=== PATIENT | female | born 1985 | race American Indian/Alaskan Native ===

== ENCOUNTER 2017-04-27 12:38 | Emergency (ER) | payer MEDICAID ==
[2017-04-27 14:03] VITALS: BMI 35.9
[2017-04-27 14:06] VITALS: TEMP 98.4; O2SAT 99
[2017-04-27] MEDS ORDERED: Sodium Chloride 0.9% 1,000 ML IV STA (14:13)
--- NOTE | 2017-04-27 14:33 | ED PDOC ---
Arrival/HPI - General Historian: Patient - History of Present Illness Time/Duration: > week Symptom Onset: Gradual Symptom Course: Unchanged Severity Level: 6 - General Chief Complaint: Abdominal Pain Time Seen by Provider: 04/27/17 14:13 - History of Present Illness Narrative History of Present Illness (Text): 31 F who is 19 weeks presents to ED with complaint of abdominal pain. Patient states that she has had this pain now for 2 weeks. It was a sudden onset and it has not changed. She initially thought she had an UTI because she had a similar pain when it occurred. Patient rates pain 8/10 in severity at its worst. Currently, it is 3/10. She describes the pain as constant and aching with varying intensity located in lower abdomen bilaterally. Standing up for long period of times exacerbates the pain while nothing alleviates it. Admits to urinary frequency but denies dysuria, urgency and incontinence. (Tashi Doyle) Past Medical History - Provider Review Nursing Documentation Reviewed: Yes - Travel History Have you recently traveled outside [place] w/in the past 3 mons?: No - Infectious Disease Hx of Infectious Diseases: None - Psychiatric Hx Substance Use: No - Surgical History Hx Tonsillectomy: Yes - Anesthesia Hx Anesthesia: Yes Hx Anesthesia Reactions: No Hx Malignant Hyperthermia: No - Suicidal Assessment Feels Threatened In Home Enviroment: No Family/Social History - Physician Review Nursing Documentation Reviewed: Yes Family/Social History: No Known Family HX Smoking Status: Light Smoker < 10 Cigarettes Daily Hx Alcohol Use: Yes Hx Substance Use: No Allergies/Home Meds Allergies/Adverse Reactions: Allergies No Known Allergies Allergy (Verified 11/02/16 14:00) Home Medications: Home Meds Medication Instructions Recorded Confirmed Pnv No.95/Ferrous Fum/Folic AC 1 tab PO DAILY 04/27/17 04/27/17 [ Tablet] Review of Systems - Review of Systems Constitutional: absent: Fatigue, Weight Change, Fevers, Night Sweats Eyes: absent: Vision Changes, Photophobia, Eye Pain ENT: absent: Hearing Changes, Tinnitus, TMJ Pain Respiratory: absent: SOB, Cough, Sputum, Wheezing Cardiovascular: absent: Chest Pain, Palpitations, Edema Gastrointestinal: Abdominal Pain, Constipation. absent: Diarrhea, Nausea, Vomiting Genitourinary Female: Dysuria, Frequency Musculoskeletal: Myalgias Skin: absent: Rash, Skin Lesions, Laceration Neurological: absent: Headache, Dizziness, Focal Weakness Endocrine: absent: Diaphoresis, Polyuria, Polydipsia Hemo/Lymphatic: absent: Adenopathy, Easy Bleeding, Easy Bruising Psychiatric: absent: Anxiety, Depression, Suicidal Ideation Physical Exam Vital Signs Reviewed: Yes Temperature: Afebrile Blood Pressure: Normal Pulse: Regular Respiratory Rate: Normal Appearance: Positive for: Well-Appearing, Non-Toxic, Comfortable Pain Distress: None Mental Status: Positive for: Alert and Oriented X 3 - Systems Exam Head: Present: Atraumatic, Normocephalic Pupils: Present: PERRL Extroacular Muscles: Present: EOMI Conjunctiva: Present: Normal Ears: Present: Normal Mouth: Present: Moist Mucous Membranes Pharnyx: Present: Normal Nose (External): Present: Atraumatic Nose (Internal): Present: Normal Inspection Neck: Present: Normal Range of Motion, Trachea Midline. No: MIDLINE TENDERNESS , Paraspinal Tenderness Respiratory/Chest: Present: Clear to Auscultation, Good Air Exchange. No: Respiratory Distress, Accessory Muscle Use, Wheezes, Rales, Rhonchi Cardiovascular: Present: Regular Rate and Rhythm, Normal S1, S2 Abdomen: Present: Tenderness (lower abdomen/suprapubic), Normal Bowel Sounds. No: Distention, Peritoneal Signs, Rebound, Guarding Back: No: CVA Tenderness Upper Extremity: Present: Normal ROM, NORMAL PULSES, Neurovascularly Intact, Capillary Refill < 2s Lower Extremity: Present: NORMAL PULSES, Normal ROM, Neurovascularly Intact, Capillary Refill < 2 s Neurological: Present: GCS=15, CN II-XII Intact, Speech Normal, Motor Func Grossly Intact, Normal Sensory Function, Normal Cerebellar Funct Skin: Present: Warm, Dry, Normal Color Lymphatic: No: Cervical Adenopathy, Axillary Adenopathy, Inguinal Adenopathy Psychiatric: Present: Alert, Oriented x 3, Normal Insight, Normal Concentration Vital Signs Temp Pulse Resp BP Pulse Ox 04/27/17 18:07 76 16 106/70 99 04/27/17 14:06 98.4 F 86 18 102/65 99 Medical Decision Making ED Course and Treatment: CBC, CMP, Urinalysis, Urine C&S, OB US ordered. IV fluids given. Urinalysis was not a clean catch. All other labs were also reviewed and were no significant change from baseline. B HCG appropriate for gestational age. OB US came back normal and dates at 20 week 2 days with a HR of 149. Patient medically stable for discharge. Patient to follow up with PMD and [facility] this week. (Tashi Doyle) - Lab Interpretations Lab Results: 04/27/17 14:55 04/27/17 14:55 Lab Results 04/27/17 14:55: Beta HCG, Quant 00674.00 H 04/27/17 14:55: Sodium 135, Potassium 3.4 L, Chloride 105, Carbon Dioxide 23, Anion Gap 10, BUN 8, Creatinine 0.5, Est GFR ( Amer) > 60, Est GFR (Non- Af Amer) > 60, Random Glucose 80, Calcium 8.8, Total Bilirubin 0.5, AST 64 H, ALT 109 H, Alkaline Phosphatase 90, Total Protein 6.7, Albumin 3.3, Globulin 3.4 , Albumin/Globulin Ratio 1.0 L, Lipase 52 04/27/17 14:55: Urine Color Yellow, Urine Appearance Sl cloudy, Urine pH 6.5, Ur Specific [place] 1.020, Urine Protein Negative, Urine Glucose (UA) Negative, Urine Ketones Negative, Urine Blood Negative, Urine Nitrate Negative, Urine Bilirubin Negative, Urine Urobilinogen 1.0 H, Ur Leukocyte Esterase Small H, Urine RBC Negative, Urine WBC 2 - 5, Ur Epithelial Cells Many, Urine Bacteria Few 04/27/17 14:55: WBC 8.3 D, RBC 3.84, Hgb 9.1 L, Hct 25.6 L, MCV 66.7 L, MCH 23.7 L, MCHC 35.5, RDW 16.2 H, Plt Count 170, MPV 11.0, Gran % 65.4, Lymph % ( Auto) 27.2, [place] % (Auto) 6.6 H, Eos % (Auto) 0.7 L, Baso % (Auto) 0.1, Gran # 5.41, Lymph # 2.3, [place] # 0.6, Eos # 0.1, Baso # 0.01 - RAD Interpretation Radiology Orders: 04/27/17 14:15 OB , LIMITED [US] Stat - Medication Orders Current Medication Orders: Discontinued Medications Sodium Chloride (Sodium Chloride 0.9%) 1,000 mls @ 1,000 mls/hr IV .Q1H STA Stop: 04/27/17 15:12 Last Admin: 04/27/17 14:52 Dose: 1,000 mls/hr - PA / ACADEMIC COACH / Resident Statement / has reviewed & agrees with the documentation as recorded. / has examined the patient and agrees with the treatment plan. Disposition/Present on Arrival - Present on Arrival Any Indicators Present on Arrival: No History of DVT/PE: No History of Uncontrolled Diabetes: No Urinary Catheter: No History of Decub. Ulcer: No History Surgical Site Infection Following: None - Disposition Have Diagnosis and Disposition been Completed?: Yes Disposition Time: 17:20 Patient Plan: Discharge - Disposition Diagnosis: Abdominal pain during Disposition: HOME/ ROUTINE Condition: GOOD Discharge Instructions (ExitCare): Abdominal Pain in (ED) Additional Instructions: Thank you for letting us take care of you today. Your provider was Dr. Doyle /Dr. Chung. You were treated for Abdominal Pain in . The emergency medical care you received today was directed at your acute symptoms. If you were prescribed any medication, please fill it and take as directed. It may take several days for your symptoms to resolve. Return to the Emergency Department if your symptoms worsen, do not improve, or if you have any other problems. Please contact your doctor or call one of the physicians/clinics you have been referred to that are listed on the Patient Visit Information form that is included in your discharge packet. Bring any paperwork you were given at discharge with you along with any medications you are taking to your follow up visit. Our treatment cannot replace ongoing medical care by a primary care provider (PCP) outside of the emergency department. Thank you for allowing the [facility] team to be part of your care today. If you had an X-Ray or CT scan: A Radiologist will review the ED reading if any change in treatment is needed we will contact you. If you had a blood, urine, or wound culture: It will take several days for the results, if any change in treatment is needed we will contact you. If you had an STI test: It will take 48 hours for the results. Please call after 1 week if you have not heard back. Follow up with [facility] within 2-3 days Follow up with PMD within 2-3 days Please Return to ED if symptoms persist or condition worsens Referrals: Karma Claros MD [Primary Care Provider] - Follow up with primary Forms: WORK NOTE
[2017-04-27 15:29] LABS: BASO # 0.01 K/mm3 (0.0-2.0); BASO % 0.1 % (0.0-3.0); EOS # 0.1 (0.0-0.7); EOS % 0.7 % (1.5-5.0); GRAN # 5.41 (1.4-6.5); GRAN % 65.4 % (50.0-68.0); HEMOGLOBIN 9.1 gm/dL (12.0-16.0); LYMPH # 2.3 (1.2-3.4); LYMPH % 27.2 % (22.0-35.0); MEAN CELL VOLUME 66.7 fL (80.0-105.0); MEAN CORPUSCULAR HEMOGLOBIN 23.7 pg (25.0-35.0); MEAN CORPUSCULAR HGB CONC 35.5 g/dl (31.0-37.0); MONO # 0.6 (0.1-0.6); MONO % 6.6 % (1.0-6.0); PLATELET COUNT 170 10^3/uL (120.0-450.0); RBC 3.84 10^6/uL (3.5-6.1); RED CELL DISTRIBUTION WIDTH 16.2 % (11.5-14.5); WHITE BLOOD COUNT 8.3 10^3/ul (4.5-11.0)
[2017-04-27 15:35] LABS: PH,URINE 6.5 (4.7-8.0); URINE APPEARANCE SL CLOUDY (CLEAR); URINE BILIRUBIN NEGATIVE (NEGATIVE); URINE BLOOD NEGATIVE (NEGATIVE); URINE COLOR YELLOW (YELLOW); URINE GLUCOSE (UA) NEGATIVE (NEGATIVE); URINE LEUKOCYTE ESTERASE SMALL Leu/uL (NEGATIVE); URINE NITRATE NEGATIVE (NEGATIVE); URINE PROTEIN NEGATIVE mg/dL (<30 mg/dL)
[2017-04-27 15:38] LABS: ALBUMIN 3.3 g/dL (3.0-4.8); ALT/SGPT 109 U/L (7-56); AST/SGOT 64 U/L (15-39); BLOOD UREA NITROGEN 8 mg/dL (7-21); CALCIUM 8.8 mg/dL (8.4-10.5); GFR AFRICAN-AMERICAN > 60; GFR NON-AFRICAN AMERICAN > 60; LIPASE 52 U/L (23-300)
[2017-04-27 15:42] LABS: URINE BACTERIA FEW (NEG); URINE EPITHELIAL CELLS MANY /hpf (0-5); URINE RBC NEGATIVE /hpf (0-2)
--- NOTE | 2017-04-27 17:13 | US ---
OB , limited Comparison: None available Technique: Real-time ultrasound was performed through the pelvis. Findings: There is a single living fetus in cephalic presentation. Anterior placenta. The placenta is not previa. There are no adnexal masses or cysts evident. Cervix length measures approximately 3.6 cm. Measurements and calculations: Fetus has a composite sonographic age of 20 weeks 2 days. This calculation is based on the biparietal diameter, head circumference, abdominal circumference, and femur length. Estimated heart rate 149.2 beats per min. Impression: Single living fetus with a composite sonographic age of 20 weeks 2 days. Estimated heart rate 149.2 beats per min. The study was performed for emergent evaluation, and the whole anatomic survey of the fetus was not performed. This should be performed on an outpatient elective basis as clinically warranted.
[2017-04-27 18:08] VITALS: BP 106/70; PULSE 76; RESP 16
== END 2017-04-27 18:08 | disposition home or self-care (01) ==
LOC: ED 12:38
DX: O26.892 Other specified pregnancy related conditions, second trimester (principal); R10.9 Unspecified abdominal pain; Z3A.20 20 weeks gestation of pregnancy
CPT/HCPCS: 76815; 80053; 81001; 83690; 84702; 85025; 87086; 96360; 99284; J7040